=== PATIENT | female | born 1970 | race Caucasian/White ===

== ENCOUNTER 2016-12-01 19:55 | Emergency (ER) | payer OTHER ==
[~2016-12-01] VITALS: Ht 160 cm; Wt 87.3 kg
[2016-12-01 20:01] VITALS: TEMP 100.7
[2016-12-01 20:35] LABS: PH 6 (5-8); SQUAMOUS EPITHELIAL 0-2 /hpf; URINE APPEARANCE Clear; URINE BACTERIA None Seen /hpf; URINE BILIRUBIN Negative (NEGATIVE); URINE BLOOD Negative (NEGATIVE); URINE COLOR Yellow; URINE GLUCOSE Negative (NEGATIVE); URINE KETONE Negative (NEGATIVE); URINE RBC 0-2 /hpf; URINE WBC 0-2 /hpf
[2016-12-01 20:49] LABS: BASO % 0.3 % (0.0-2.0); EOS # 0.1 (0.0-0.7); EOS % 0.7 % (0-4.0); GRAN # 7.5 (1.4-6.5); GRAN % 81.5 % (42.2-75.2); HEMATOCRIT 41.5 % (37.0-47.0); HEMOGLOBIN 14.4 g/dl (12.5-16.0); LYMPH % 10.3 % (20.0-51.0); MEAN CELL VOLUME 92 fl (80.0-100.0); MEAN CORPUSCULAR HEMOGLOBIN 32 pg (27.0-31.0); MEAN CORPUSCULAR HGB CONC 35 g/dl (33.0-37.0); MONO # 0.7 (0.1-0.6); PLATELET COUNT 243 K/mm3 (130-400); RED BLOOD COUNT 4.51 M/mm3 (4.10-5.30); REDCELL DISTRIBUTION WIDTH-CV 12.2 % (11.5-14.5); WHITE BLOOD COUNT 9.2 K/mm3 (4.8-10.8)
[2016-12-01 21:00] LABS: ADJUSTED CALCIUM 9.2 mg/dL (8.4-10.2); ALBUMIN 4.1 gm/dL (3.5-5.0); BILIRUBIN,TOTAL 1.3 mg/dL (0.0-1.0); C-REACTIVE PROTEIN 8.1 mg/dL (0.0-0.9); CALCIUM 9.3 mg/dL (8.4-10.2); CREATININE, serum 0.7 mg/dL (0.52-1.25); POTASSIUM 3.8 mmol/L (3.4-5.0); TOTAL PROTEIN 7.6 gm/dL (6.4-8.2)
[2016-12-01] MEDS ORDERED: FLAGYL500 MG PO (22:40)
[2016-12-01] MEDS ORDERED: ZOFRAN 4MG T4 MG/TAB PO (22:40)
[2016-12-01] MEDS ORDERED: NORCO 325 MG-51 TAB PO (22:40)
[2016-12-01] MEDS ORDERED: CIPRO 500MG TA500 MG PO (22:40)
[2016-12-01 22:48] LABS: INFLUENZA B NEGATIVE
[2016-12-01 23:28] VITALS: BP 122/76; PULSE 94
== END 2016-12-01 23:30 | disposition home or self-care (01) ==
LOC: COL.ER 19:55
PROVIDERS: Emergency Medicine
DX: K57.32 Diverticulitis of large intestine without perforation or abscess without bleeding (principal)
CPT/HCPCS: J7030; Q9967